=== PATIENT | male | born 1940 | race Caucasian/White ===

== ENCOUNTER 2019-12-29 20:47 | Emergency (ER) | payer MEDICARE, BC ==
[2019-12-29] MEDS: Sodium Chloride 0.9% 1,000 ML IV ONE (20:45)
[2019-12-29] MEDS ORDERED: Ondansetron 4 MG Tab.DIS PO ONE (20:48)
--- NOTE | 2019-12-29 21:24 | EDM.PDOC ---
ED HPI GENERAL MEDICAL PROBLEM - General Chief Complaint: Gastrointestinal Problem Stated Complaint: VOMITING, sob Time Seen by Provider: 12/29/19 20:50 Source of Information: Reports: Patient, EMS History Limitations: Reports: No Limitations - History of Present Illness INITIAL COMMENTS - FREE TEXT/NARRATIVE: Patient to the emergency department by EMS complaining of abdominal cramping with nausea and vomiting x2 days. On the initial call from the patient's daughter she advised that he also was complaining of some shortness of breath, however, the patient denies any shortness of breath at any recent time. The patient also denies any fever chills he denies being exposed to anybody with covid 19, is any change in taste or smell he denies any diarrhea denies any cough. The patient advises that the nausea and vomiting was more worse after eating a tuna fish sandwich even though he did have the symptoms before eating the tunafish sandwich today. The patient denies any coffee-ground emesis he denies any black or tarry stools denies any bloody stools. He advises bowel movements are normal. He denies any other symptoms no ear, nose, throat symptoms no unusual neck, back pain or stiffness Onset: Gradual (Times x2 days) Duration: Day(s): (2 days) Location: Reports: Abdomen Quality: Reports: Ache Severity: Mild Improves with: Reports: None Worsens with: Reports: Eating Associated Symptoms: Reports: Nausea/Vomiting. Denies: Chest Pain, Cough, cough w sputum, Fever/Chills, Rash, Shortness of Breath, Weakness Treatments HAND TAPPER: Reports: Other (see below) (none) - Related Data Allergies Allergy/AdvReac Type Severity Reaction Status Date / Time No Known Allergies Allergy Verified 12/29/19 21:08 Home Meds: Home Meds Aspirin [[place] Aspirin EC] 81 mg PO DAILY 12/29/19 [History] Atenolol [Tenormin] 50 mg PO DAILY 12/29/19 [History] Furosemide 40 mg PO DAILY 12/29/19 [History] Gabapentin [Neurontin] 300 mg PO BID 12/29/19 [History] Lisinopril [Zestril] 20 mg PO DAILY 12/29/19 [History] Potassium Chloride 10 meq PO DAILY 12/29/19 [History] atorvaSTATin [Lipitor] 20 mg PO DAILY 12/29/19 [History] Past Medical History HEENT History: Reports: Hard of Hearing Cardiovascular History: Reports: Heart Failure, High Cholesterol, Pacemaker Neurological History: Reports: Neuropathy, Peripheral Social & Family History - Family History Family Medical History: Noncontributory - Tobacco Use Smoking Status *Q: Never Smoker - Caffeine Use Caffeine Use: Reports: None - Recreational Drug Use Recreational Drug Use: No ED ROS GENERAL - Review of Systems Review Of Systems: See Below Constitutional: Reports: No Symptoms. Denies: Fever, Chills, Weakness, Fatigue , Night Sweats, Diaphoresis HEENT: Reports: No Symptoms. Denies: Ear Pain, Nose Pain, Sinus Problem, Throat Pain Respiratory: Reports: No Symptoms. Denies: Shortness of Breath, Wheezing, Cough , Sputum Cardiovascular: Reports: No Symptoms. Denies: Chest Pain, Edema Endocrine: Reports: No Symptoms GI/Abdominal: Reports: Abdominal Pain, Decreased Appetite, Nausea, Vomiting. Denies: Black Stool, Bloody Stool, Constipation, Diarrhea, Distension, Melena : Reports: No Symptoms Musculoskeletal: Reports: No Symptoms. Denies: Neck Pain, Back Pain Skin: Reports: No Symptoms. Denies: Pallor, Erythema Neurological: Reports: No Symptoms Psychiatric: Reports: No Symptoms Hematologic/Lymphatic: Reports: No Symptoms ED EXAM, GI/ABD - Physical Exam Exam: See Below Exam Limited By: No Limitations General Appearance: Alert, WD/WN, No Apparent Distress Ears: Normal External Exam Nose: Normal Inspection Throat/Mouth: Normal Inspection, Normal Lips, Normal Voice, No Airway Compromise Head: Atraumatic, Normocephalic Neck: Normal Inspection, Supple, Non-Tender, Full Range of Motion Respiratory/Chest: No Respiratory Distress, Lungs Clear, Normal Breath Sounds, Chest Non-Tender Cardiovascular: Normal Peripheral Pulses, Regular Rate, Rhythm, No Edema GI/Abdominal Exam: Normal Bowel Sounds, Soft, Non-Tender, No Organomegaly, No Distention, No Abnormal Bruit, No Mass. No: Distended, Guarding, Rigid, Tender Back Exam: Normal Inspection, Full Range of Motion. No: CVA Tenderness (L), CVA Tenderness (R) Extremities: Normal Inspection, Normal Range of Motion, Non-Tender, Normal Capillary Refill Neurological: Alert, Oriented, Normal Cognition, Normal Gait, No Motor/Sensory Deficits Psychiatric: Normal Affect, Normal Mood Skin Exam: Warm, Dry, Intact, Normal Color Course - Vital Signs Text/Narrative:: 2143 the patient's been evaluated in the emergency department, CBC and general chemistries are negative the patient's tilt test was essentially negative as well. The patient was given normal saline 1 L bolus and p.o. fluids are being attempted at this point. I have spoke with the patient's daughter and I did question her about the term shortness of breath to be sure that this was not something that is been overlooked by the patient and she advised that it was probably a misunderstanding on her part in between conversations with different family members. So, at this point everybody has come out of the respiratory isolation PPE and have went down to gloves and mask as well as the patient continues to wear his mask. Once the patient is tolerating p.o. without any problems he will be discharged home. 2209 the patient is tolerating liquids without any nausea or vomiting. The patient will be discharged home he will be given Zofran 1 tablet of 4 mg every 4 -6 hours as needed for nausea vomiting increase his fluids, clear liquids for 12 hours then advance to full liquids for 12 hours and then a bland diet for the next few days no milk or milk products he is to follow-up in the clinic later this week and return to the emergency department sooner if worse or any problems. I did discuss all this with the patient and the patient's family and they all agree with the disposition. Last Recorded V/S: Last Vital Signs Temp 36.5 C 12/29/19 21:30 Pulse 60 12/29/19 21:30 Resp 18 12/29/19 21:30 BP 148/66 H 12/29/19 21:30 Pulse Ox 100 12/29/19 21:30 - Orders/Labs/Meds Orders: Active Orders 24 hr Category Date Time Status Isolation [COMM] Routine Oth 12/29/19 21:01 Active Labs: Laboratory Tests 12/29/19 12/29/19 Range/Units 20:53 20:53 WBC 9.0 (5.0-10.0) 10^3/uL RBC 4.37 L (4.50-6.00) 10^6/uL Hgb 14.2 (14.0-18.0) g/dL Hct 42.2 (40.0-54.0) % MCV 96.6 H (82.0-94.0) fL MCH 32.5 H (27.0-32.0) pg MCHC 33.6 (33.0-38.0) g/dL RDW Coeff of Savi 12.9 (11.0-15.0) % Plt Count 133 L (150-400) 10^3/uL Neut % (Auto) 83.7 (35-85) % Lymph % (Auto) 6.5 L (10-55) % Rowan % (Auto) 9.0 (0-16) % Eos % (Auto) 0.6 (0-5) % Baso % (Auto) 0.2 (0-3) % Neut # (Auto) 7.52 H (1.80-7.00) 10^3/uL Lymph # (Auto) 0.58 L (1.00-4.80) 10^3/uL Rowan # (Auto) 0.81 H (0.00-0.80) 10^3/uL Eos # (Auto) 0.05 (0.00-0.45) 10^3/uL Baso # (Auto) 0.02 10^3/uL Sodium 139 (136-145) mEq/L Potassium 4.7 (3.5-5.0) mEq/L Chloride 101 (98-106) mEq/L Carbon Dioxide 31 (21-32) mmol/L BUN 19 H (7-18) mg/dL Creatinine 1.2 (0.7-1.3) mg/dL Est Cr Clr Drug Dosing 48.29 mL/min Estimated GFR (MDRD) 58 L (>=60) mL/min Glucose 120 H (75-99) mg/dL Calcium 8.8 (8.4-10.1) mg/dL Magnesium 2.2 (1.8-2.4) mg/dL Total Bilirubin 1.1 H (0.0-1.0) mg/dL AST 27 (15-37) U/L ALT 29 (12-78) U/L Alkaline Phosphatase 89 (46-116) U/L C-Reactive Protein 0.3 (0.2-0.8) mg/dL Total Protein 7.1 (6.4-8.2) g/dL Albumin 3.9 (3.4-5.0) g/dL Meds: Medications Discontinued Medications Generic Name Dose Route Start Last Admin Trade Name Vivi PRN Reason Stop Dose Admin Sodium Chloride 1,000 mls @ 999 mls/hr 12/29/19 20:52 12/29/19 20:45 Normal Saline IV 12/29/19 21:52 999 mls/hr .BOLUS ONE Administration Departure - Departure Time of Disposition: 22:10 Disposition: Home, Self-Care 01 Condition: Good Clinical Impression: Gastroenteritis - Discharge Information *PRESCRIPTION DRUG MONITORING PROGRAM REVIEWED*: Not Applicable *COPY OF PRESCRIPTION DRUG MONITORING REPORT IN PATIENT GIL: Not Applicable Instructions: Viral Gastroenteritis, Adult, Dehydration, Adult, [id number] Referrals: Jeffery Gan MD [Primary Care Provider] - Forms: ED Department Discharge Additional Instructions: Increase fluids Clear liquids for the next 12 hours and then full liquids for 12 hours and then advance diet to a bland diet no spicy or greasy foods Zofran 4 mg every 4 hours as needed for any nausea vomiting Follow-up the family doctor this coming week, return to the emergency department sooner if worse or any problems Sepsis Event Note - Evaluation Sepsis Screening Result: No Definite Risk - Focused Exam Vital Signs: Vital Signs Temp Pulse Resp BP Pulse Ox 12/29/19 21:30 36.5 C 60 18 148/66 H 100 12/29/19 20:48 36.5 C 59 L 18 158/76 H 100 Date Exam was Performed: 12/29/19 Time Exam was Performed: 22:09 - Problem List & Annotations (1) Gastroenteritis SNOMED Code(s): 93774425 Code(s): K52.9 - NONINFECTIVE GASTROENTERITIS AND COLITIS, UNSPECIFIED Status: Acute Priority: Medium Current Visit: Yes - Problem List Review Problem List Initiated/Reviewed/Updated: Yes - My Orders Last 24 Hours: My Active Orders 12/29/19 21:01 Isolation [COMM] Routine - Assessment/Plan Last 24 Hours: My Active Orders 12/29/19 21:01 Isolation [COMM] Routine Plan: As above
[2019-12-29 21:34] VITALS: BP 148/66; PULSE 60
[2019-12-29] MEDS ORDERED: Take Home: Ondansetron 4 MG Tab.DIS, 2 Tab Pack PO ONE (22:10)
== END 2019-12-29 22:46 | disposition home or self-care (01) ==
LOC: CC.ED 20:47 → MERGE 20:47 → CC.ED 22:46
DX: K52.9 Noninfective gastroenteritis and colitis, unspecified (principal); I50.9 Heart failure, unspecified; E78.00 Pure hypercholesterolemia, unspecified; Z79.82 Long term (current) use of aspirin; Z79.899 Other long term (current) drug therapy
CPT/HCPCS: 36415; 80053; 83735; 85025; 86140; 96360; 99283; 99284-25; A9270-GY; J7030